=== PATIENT | male | born 1980 | race Caucasian/White ===

== ENCOUNTER 2020-07-18 10:52 | Day surgery (SDC) | payer BC ==
[~2020-07-18] VITALS: Ht 172.7 cm; Wt 105.0 kg
[2020-07-18] MEDS ORDERED: BUPIVACAINE/PF 0.5% ONE (11:04)
[2020-07-18] MEDS ORDERED: LIDOCAINE/PF 1%, 30ML ONE (11:04)
[2020-07-18] MEDS ORDERED: LACTATED RINGERS 1,000 ML IV SCH (11:36)
[2020-07-18] MEDS ORDERED: HYDR-3241 PO (11:42)
[2020-07-18] MEDS ORDERED: ZERTEC PO (11:42)
[2020-07-18] MEDS ORDERED: OMEP-110 PO (11:42)
[2020-07-18] MEDS ORDERED: SERT25TA3 PO (11:42)
[2020-07-18 11:45] VITALS: BP 130/84
[2020-07-18] MEDS ORDERED: CHLORHEXIDINE 15 ML UDC MM ONE (12:00)
[2020-07-18] MEDS ORDERED: PROPOFOL 10 MG/ML, 20ML ONE ×3 (12:12→15:21)
[2020-07-18] MEDS ORDERED: FENTANYL PF 100 MCG/2ML ONE ×5 (12:12→15:58)
[2020-07-18] MEDS ORDERED: ROPIvacaine/PF 0.5%, 30 ML ONE ×2 (12:12)
[2020-07-18] MEDS ORDERED: MIDAZOLAM 1 MG/ML, 2ML ONE (12:28)
[2020-07-18] MEDS ORDERED: SUCCINYLCHOLINE 20 MG/ML, 10ML ONE ×2 (12:28)
[2020-07-18] MEDS ORDERED: ACETAMINOPHEN 500 MG TABLET ONE (12:30)
[2020-07-18] MEDS ORDERED: LIDOCAINE-MPF 2% ,5ML ONE (12:30)
[2020-07-18] MEDS ORDERED: ACETAMINOPHEN 500 MG TABLET PO ONE (12:30)
[2020-07-18] MEDS ORDERED: CEFAZOLIN 1,000 MG ONE ×2 (12:44)
[2020-07-18] MEDS ORDERED: DEXAMETHASONE 4 MG/ML, 1ML ONE ×3 (12:44)
[2020-07-18] MEDS ORDERED: FENTANYL PF 250 MCG/5ML ONE (13:00)
[2020-07-18] MEDS ORDERED: LIDOCAINE 1%, 20ML INFIL ONE ×2 (13:18→13:19)
[2020-07-18] MEDS ORDERED: BUPIVACAINE/PF 0.25% INFIL ONE (13:21)
[2020-07-18] MEDS ORDERED: ONDANSETRON 2MG/ML, 2ML IVPush PRN (13:30)
[2020-07-18] MEDS ORDERED: OXYcodone 5 MG/5 ML ORAL.SOL UDC PO PRN (13:30)
[2020-07-18] MEDS ORDERED: KETOROLAC 30 MG/1 ML ONE (15:32)
[2020-07-18] MEDS ORDERED: ONDANSETRON 2MG/ML, 2ML ONE (15:32)
[2020-07-18] MEDS ORDERED: OXYcodone 5 MG/5 ML ORAL.SOL UDC ONE (15:46)
[2020-07-18] MEDS: FENTANYL PF 100 MCG/2ML IV PRN ×4 (15:49→16:08)
[2020-07-18] MEDS ORDERED: MEPERIDINE/PF 25MG/ML,1ML ONE (15:52)
[2020-07-18] MEDS ORDERED: HYDROmorphone 2 MG/ML, 1ML ONE (15:58)
[2020-07-18] MEDS ORDERED: MEPERIDINE/PF 25MG/0.5ML IVPush PRN (16:00)
[2020-07-18] MEDS: HYDROmorphone 1 MG/ML, 1ML INJ IVPush PRN ×6 (16:03→16:39)
[2020-07-18] MEDS ORDERED: HYDROmorphone 1 MG/ML, 1ML INJ ONE (16:30)
[2020-07-18] MEDS ORDERED: DIAZEPAM 5 MG TABLET PO ONE (17:30)
== END 2020-07-18 18:30 | disposition home or self-care (01) ==
LOC: OUT 10:52
PROVIDERS: ATTEND Orthopaedic Surgery
DX: S82.852A Displaced trimalleolar fracture of left lower leg, initial encounter for closed fracture (principal); F41.9 Anxiety disorder, unspecified; K21.9 Gastro-esophageal reflux disease without esophagitis; F17.210 Nicotine dependence, cigarettes, uncomplicated; F12.90 Cannabis use, unspecified, uncomplicated; X58.XXXA Exposure to other specified factors, initial encounter; Y93.89 Activity, other specified; Y92.89 Other specified places as the place of occurrence of the external cause; Y99.8 Other external cause status; Z20.828 Contact with and (suspected) exposure to other viral communicable diseases; Z79.899 Other long term (current) drug therapy
CPT/HCPCS: 27822; 73600; 76000; 87635; C1713; J0330; J0690; J1100; J1170; J1885; J2175; J2250; J2405; J2704; J2795; J3010; J3490